=== PATIENT | male | born 1985 | race Caucasian/White ===

== ENCOUNTER → 2020-12-05 | Outpatient (CLI) | payer OTHER ==
[~2020-12-05] MED LIST: OMNIPAQUE 350 MG/ML, 150 ML BOTTLE ONE
== END | disposition home or self-care (01) ==
LOC: RAD 12:25
PROVIDERS: ATTEND Internal Medicine Cardiovascular Disease
DX: I36.1 Nonrheumatic tricuspid (valve) insufficiency (principal); R60.9 Edema, unspecified; R00.0 Tachycardia, unspecified; R06.00 Dyspnea, unspecified
CPT/HCPCS: 71275; 93321; 93325; C8924; Q9967

== ENCOUNTER → 2021-01-15 | Outpatient (CLI) | payer OTHER | END | disposition home or self-care (01) | LOC: WOUND 10:40 | PROVIDERS: ATTEND Internal Medicine | DX: I87.333 Chronic venous hypertension (idiopathic) with ulcer and inflammation of bilateral lower extremity (principal); L97.812 Non-pressure chronic ulcer of other part of right lower leg with fat layer exposed; L97.822 Non-pressure chronic ulcer of other part of left lower leg with fat layer exposed; L97.222 Non-pressure chronic ulcer of left calf with fat layer exposed; L97.212 Non-pressure chronic ulcer of right calf with fat layer exposed; I27.20 Pulmonary hypertension, unspecified; G47.33 Obstructive sleep apnea (adult) (pediatric); J96.10 Chronic respiratory failure, unspecified whether with hypoxia or hypercapnia; L84 Corns and callosities; E66.09 Other obesity due to excess calories; Z68.44 Body mass index [BMI] 60.0-69.9, adult; Z90.49 Acquired absence of other specified parts of digestive tract | CPT/HCPCS: 97597; 97598; 99215 ==